=== PATIENT | female | born 1990 | race American Indian/Alaskan Native ===

== ENCOUNTER 2022-11-19 02:42 | Emergency (ER) | payer OTHER, SELFPAY ==
[2022-11-19] VITALS (10 sets, daily range): BP systolic 80–96; BP diastolic 60–74; PULSE 72–87; RESP 16; TEMP 36.4; O2SAT 40–100
--- NOTE | ~2022-11-19 | US_ITS ---
CORRECTED REPORT DESCRIPTION ADDED. US OB <= 14 weeks fetus. 11/19/22 sef This report was recreated on 11/19/2022. Original report was [facility] NEUROPSYCHOLOGIST. Pelvic ultrasound. Clinical History: First trimester , pelvic pain, evaluate for ectopic Technique: Realtime transabdominal and transvaginal scanning of the pelvis was performed. Color flow Doppler and Doppler spectral analysis were performed. Findings: The uterus is anteverted. Intrauterine gestational sac is present. Reid-rump length of 3 mm corresponds to an estimated gestational age is 6 weeks 0 days. heart rate is 93 bpm. The right ovary measures 2.1 x 2.0 x 2.0 cm. No significant right ovarian or adnexal mass is seen. The left ovary measures 2.6 x 2.2 x 1.5 cm. No significant left ovarian or adnexal mass is seen. There is no evidence of free fluid in the cul de sac. Impression: Live intrauterine gestation with estimated gestational age of 6 weeks 0 days. heart rate is 93 bpm. Relative bradycardia may be due to the very early gestational age. Reviewed, dictated and finalized at location . ICAL NEUROPSYCHOLOGIST MTDD Impression: Live intrauterine gestation with estimated gestational age of 6 weeks 0 days. F etal heart rate is 93 bpm. Relative bradycardia may be due to the very early ge stational age.
--- NOTE | 2022-11-19 02:57 | ED.GENADULT ---
HPI - General Adult General Chief complaint: Abdominal Pain Stated complaint: Back pain and abd pain, 6 weeks preg Time Seen by Provider: 11/19/22 02:51 History of Present Illness HPI narrative: Patient 32-year-old female who presents the emergency department with chief complaint of abdominal pain. Patient reports that she is approximately 6 weeks and has not had any evaluation during this patient reports this evening she started having pain in the epigastric region that radiates to her back. Patient reports the pain is sharp reports it hurts whenever she breathes the patient reports she has had nausea and vomiting and has vomited 2 episodes. Patient denies fever reports that she ate some fish earlier this evening patient denies diarrhea. The patient states the pain is mostly in the epigastric region. Related Data Allergies Allergy/AdvReac Type Severity Reaction Status Date / Time No Known Allergies Allergy Verified 11/19/22 02:51 Review of Systems Review of Systems: A 10 system review of systems was completed on the patient and is negative except for what is stated in the HPI. Nursing and ancillary documentation was reviewed. Exam Narrative: GENERAL: Well-appearing, well-nourished, and in no acute distress. HEAD: Normocephalic, atraumatic. EYES: PERRLA and EOMI. ENT: Nares clear, no rhinorrhea or epistaxis. Mucous membranes moist. NECK: Supple. CHEST: Clear to auscultation. No respiratory distress. HEART: Regular rate and rhythm. No murmur heard. Normal peripheral pulses. ABDOMEN: Soft, tenderness to palpation in the epigastric region, nondistended, normal active bowel sounds. EXTREMITIES: Normal range of motion. No edema. SKIN: Warm, dry, no rash. NEURO: No focal deficits. Alert and oriented x3. PSYCH: Normal mood and affect. Course Vital Signs Vital signs: Vital Signs Temperature 36.4 C 11/19/22 02:45 Pulse Rate 74 11/19/22 02:45 Respiratory Rate 16 11/19/22 02:45 Blood Pressure 94/60 L 11/19/22 02:45 Pulse Oximetry 100 11/19/22 02:45 Oxygen Delivery Room Air 11/19/22 02:45 Temperature 36.4 C 11/19/22 02:45 Pulse Rate 73 11/19/22 06:43 Respiratory Rate 16 11/19/22 06:43 Blood Pressure 95/60 L 11/19/22 06:43 Pulse Oximetry 100 11/19/22 06:43 Oxygen Delivery Room Air 11/19/22 02:45 Medical Decision Making MDM Narrative Medical decision making narrative: Patient's laboratory studies were evaluated patient had a white count of 14,000 liver enzymes did not show any elements of the bilirubin patient has a normal lipase. Beta hCG was 19,035 urinalysis showed no evidence of UTI Due to the patient's pain a ultrasound was ordered of the abdomen which showed no evidence of ectopic showed a 6-week intrauterine with a somewhat slow cardiac heart rate in the 90s. Patient was given additional pain control and will be discharged home to follow-up with her primary care provider Differential Diagnosis Differential Diagnosis: Ectopic, reflux, biliary colic, pancreatitis Vital Signs Vital Signs: Vital Signs Temperature 36.4 C 11/19/22 02:45 Pulse Rate 74 11/19/22 02:45 Respiratory Rate 16 11/19/22 02:45 Blood Pressure 94/60 L 11/19/22 02:45 Pulse Oximetry 100 11/19/22 02:45 Oxygen Delivery Room Air 11/19/22 02:45 Temperature 36.4 C 11/19/22 02:45 Pulse Rate 73 11/19/22 06:43 Respiratory Rate 16 11/19/22 06:43 Blood Pressure 95/60 L 11/19/22 06:43 Pulse Oximetry 100 11/19/22 06:43 Oxygen Delivery Room Air 11/19/22 02:45 Lab Data 11/19/22 03:24 11/19/22 03:24 Labs: Lab Results 11/19/22 11/19/22 11/19/22 Range/Units 03:24 03:24 03:24 WBC 14.2 H (4.5-10.0) K/mm3 RBC 4.98 (4.2-5.4) M/mm3 Hgb 11.7 L (12.0-15.0) g/dL Hct 36.0 L (37.0-47.0) % MCV 72.3 L (80-100) fl MCH 23.5 L (26-34) pg MCHC 32.5 (32-36) g/dl RDW
[2022-11-19] MEDS: SODIUM CHLORIDE 0.9% IV 1,000 ML 999 ML IV CONT ×2 (03:16→08:45)
[2022-11-19] MEDS: MORPHINE SULFATE (*CRX) 4 MG/ML INJ IV PUSH ×2 (03:16→07:32)
[2022-11-19] MEDS: METOCLOPRAMIDE HCL INJ 10 MG/2 ML VIAL IV PUSH (03:16)
[2022-11-19 03:33] LABS: Appearance Urine Clear (Clear); Basophils Percent Auto 0.2 % (0.2-1.2); Bilirubin Urine Negative (Negative); Blood Urine Negative (Negative); Color Urine Yellow (Yellow); Eosinophils Percent Auto 0.2 % (0-4.4); Glucose Urine UA Negative (Negative); Hemoglobin 11.7 g/dL (12.0-15.0); Immature Granulocyte Absolute 0.06 K/mm3 (0.00-0.031); Immature Granulocyte Percent A 0.4 % (0-0.5); Ketones Urine 1+ mg/dL (Negative); Leukocyte Esterase Ur Negative LEU/UL (Negative); Lymphocytes Absolute Auto 2.01 K/mm3 (0.9-3.2); Lymphocytes Percent Auto 14.2 % (18.3-44.2); Mean Corpuscular HGB Conc 32.5 g/dl (32-36); Mean Corpuscular Hemoglobin 23.5 pg (26-34); Mean Corpuscular Volume 72.3 fl (80-100); Mean Platelet Volume 9.9 fl (7.4-10.4); Monocytes Absolute Auto 0.8 K/mm3 (0.1-0.6); Monocytes Percent Auto 5.6 % (2.6-8.5); Neutrophils Absolute Auto 11.2 K/mm3 (1.3-6.7); Neutrophils Percent Auto 79.4 % (45.5-73.1); Nitrate Urine Negative (Negative); Platelet Count Result 350 k/mm3 (150-375); Protein Urine Negative (Negative); Red Blood Count 4.98 M/mm3 (4.2-5.4); Red Cell Distribution Width 14.6 % (11.5-14.5); Urobilinogen Urine 0.2 mg/dL (<2.0); White Blood Count 14.2 K/mm3 (4.5-10.0); pH Urine 6.5 (5.0-9.0)
[2022-11-19 03:43] LABS: Bacteria Urine Trace /hpf; Mucus Urine Rare /lpf; RBC Urine 0-2 /hpf (0-2); Squamous Epithelial Cell Urine Few /hpf (Few); WBC Urine 0-3 /hpf
[2022-11-19 03:45] LABS: Alanine Aminotransferase 42 U/L (6-35); Albumin Level 4.1 g/dL (3.5-5.1); Alkaline Phosphatase 70 U/L (38-126); Anion Gap 8 mmol/L (8-16); Aspartate Amino Transferase 30 U/L (14-36); Bilirubin,Total 0.4 mg/dL (0.2-1.3); Blood Urea Nitrogen 12 mg/dL (7-17); Calcium 8.9 mg/dL (8.4-10.2); Carbon Dioxide 25 mmol/L (22-30); Chloride 101 mmol/L (98-107); Estimated Glomerular Filt Rate > 60; Glucose 136 mg/dL (65-110); Lipase 150 U/L (23-300); Sodium 134 mmol/L (137-145)
[2022-11-19 04:07] LABS: Add Urine Microscopic? YES
--- NOTE | 2022-11-19 05:42 | PC.NURSE ---
Pt to US via wheelchair
[2022-11-19] MEDS: POTASSIUM CHLORIDE 20 MEQ TABLET 40 MEQ PO (09:36)
[2022-11-19] MEDS: ONDANSETRON INJ 4 MG/2 ML VIAL IV PUSH (10:12)
== END 2022-11-19 12:19 | disposition home or self-care (01) ==
PROVIDERS: Emergency Provider Emergency Medicine
DX: O26.899 Other specified pregnancy related conditions, unspecified trimester (principal); R10.9 Unspecified abdominal pain; Z3A.01 Less than 8 weeks gestation of pregnancy
CPT/HCPCS: 36415; 76801; 76815; 80053; 81001; 81025; 83690; 84702; 85025; 96361; 96374; 96375; 96376; 99284; A9270; J2270; J2405; J2765; J7030

== ENCOUNTER 2022-11-30 20:31 | Emergency (ER) | payer OTHER, SELFPAY ==
[2022-11-30 20:33] VITALS: BP 101/62; PULSE 95; RESP 16; TEMP 36.6; O2SAT 100
[2022-11-30 21:45] LABS: Basophils Percent Auto 0.3 % (0.2-1.2); Eosinophils Absolute Auto 0.1 K/mm3 (0-0.3); Eosinophils Percent Auto 0.6 % (0-4.4); Hematocrit 36.4 % (37.0-47.0); Hemoglobin 11.8 g/dL (12.0-15.0); Immature Granulocyte Absolute 0.05 K/mm3 (0.00-0.031); Immature Granulocyte Percent A 0.4 % (0-0.5); Lymphocytes Absolute Auto 3.05 K/mm3 (0.9-3.2); Lymphocytes Percent Auto 23.6 % (18.3-44.2); Mean Corpuscular HGB Conc 32.4 g/dl (32-36); Mean Corpuscular Volume 74.1 fl (80-100); Mean Platelet Volume 9.5 fl (7.4-10.4); Monocytes Percent Auto 7.5 % (2.6-8.5); Neutrophils Absolute Auto 8.8 K/mm3 (1.3-6.7); Neutrophils Percent Auto 67.6 % (45.5-73.1); Platelet Count Result 373 k/mm3 (150-375); Red Blood Count 4.91 M/mm3 (4.2-5.4)
[2022-11-30 21:59] LABS: INR 1.1; Prothrombin Time 13.3 Seconds (11.1-14.7)
[2022-11-30 22:00] LABS: Microcytosis 1+ (NORMAL); Partial Thromboplastin Time 32.5 SECONDS (22.3-36.8); Platelet Estimate Adequate (Adequate); Schistocytes None Seen (NORMAL)
[2022-11-30 22:05] LABS: Alanine Aminotransferase 44 U/L (6-35); Albumin Level 4.2 g/dL (3.5-5.1); Alkaline Phosphatase 68 U/L (38-126); Anion Gap 10 mmol/L (8-16); Aspartate Amino Transferase 31 U/L (14-36); Bilirubin,Total 0.4 mg/dL (0.2-1.3); Blood Urea Nitrogen 11 mg/dL (7-17); Carbon Dioxide 23 mmol/L (22-30); Chloride 104 mmol/L (98-107); Estimated CRCL calculation 90 ml/min; Estimated Glomerular Filt Rate > 60; Glucose 98 mg/dL (65-110); Potassium 4.1 mmol/L (3.4-5.0); Sodium 137 mmol/L (137-145)
--- NOTE | 2022-11-30 23:06 | PC.NURSE ---
Pt reports one episode of vaginal bleeding this evening. She has not had anymore bleeding since. She is 7 weeks . Denies abdominal cramping.
[2022-11-30 23:57] LABS: Appearance Urine Clear (Clear); Bilirubin Urine Negative (Negative); Blood Urine 2+ (Negative); Color Urine Yellow (Yellow); Glucose Urine UA Negative (Negative); Ketones Urine Trace mg/dL (Negative); Leukocyte Esterase Ur Negative LEU/UL (Negative); Nitrate Urine Negative (Negative); Protein Urine Negative (Negative); Specific Grav Ur >= 1.030 (1.001-1.035); Urobilinogen Urine 0.2 mg/dL (<2.0); pH Urine 5.5 (5.0-9.0)
[2022-12-01 00:04] LABS: Bacteria Urine 1+ /hpf; Mucus Urine Rare /lpf; Squamous Epithelial Cell Urine Rare /hpf (Few); WBC Urine 0-3 /hpf
[2022-12-01 00:08] LABS: Add Urine Microscopic? YES
--- NOTE | 2022-12-01 00:15 | ED.PREGNANCY ---
HPI - General Chief complaint: Vaginal Bleeding Stated complaint: 7 weeks -vaginal bleeding Time Seen by Provider: 11/30/22 22:44 Source: patient and old records reviewed Mode of arrival: ambulatory Limitations: no limitations History of Present Illness HPI Narrative: Patient is a 32-year-old female who presents the ED with report of vaginal bleeding. Patient is and currently approximately 7 weeks gestation, confirmed IUP, OBGYN Dr. Barker. Patient saw her HAND ASSEMBLER FOR P[employer] OVER yesterday at which point everything was normal. Today, she experienced 1 episode of vaginal spotting with wiping. She became concerned and decided to come into the ED. She denies any abdominal pain at this time. Denies nausea, vomiting, urinary symptoms, fevers. Related Data Allergies Allergy/AdvReac Type Severity Reaction Status Date / Time No Known Allergies Allergy Verified 11/19/22 02:51 Review of Systems Review of Systems: CONSTITUTIONAL: Denies fever, chills, or sweats. CARDIOVASCULAR: Denies chest pain. RESPIRATORY: Denies dyspnea. GASTROINTESTINAL: Denies abdominal pain, nausea, vomiting, or diarrhea. GENITOURINARY: See HPI. All systems reviewed & are unremarkable except as noted in HPI and below PMFSH Past Medical History Medical History (Updated 12/01/22 @ 02:10 by Shy Hernandez PA-C) No pertinent past medical history Surgical History Surgical History (Updated 12/01/22 @ 00:16 by Shy Hernandez PA-C) No pertinent past surgical history Social History Social History (Updated 12/01/22 @ 00:16 by Shy Hernandez PA-C) Smoking status: Never smoker Exam Narrative: GENERAL: Well appearing, well-nourished, non-toxic, in no acute distress. HEAD: Normocephalic, atraumatic. NECK: Supple. No adenopathy, no masses. RESPIRATORY: Airway patent, respirations nonlabored. Clear to auscultation bilaterally, no rales, rhonchi, wheezing. CARDIOVASCULAR: Regular rate and rhythm without murmurs, rubs, or gallops. Peripheral pulses 2+ and equal bilaterally. ABDOMINAL: Soft, no tenderness throughout abdomen, nondistended, no hepatosplenomegaly. Normoactive BS. PELVIC: Normal external genitalia. Mild amount of dark red/brown vaginal discharge/spotting. No active bright red bleeding. Cervix appears closed. No significant CMT. MUSCULOSKELETAL: Moves all extremities. Strength/ROM intact without gross deformities. SKIN: Warm, dry, normal color. No rashes. NEURO: A&O X3. Speech clear. Cranial nerves II-XII grossly intact. Steady gait. No ataxic movements. PSYCHIATRIC: Appropriate mood and affect. Normal interaction. Course Vital Signs Vital signs: Vital Signs Temperature 97.9 F 11/30/22 20:33 Pulse Rate 95 11/30/22 20:33 Respiratory Rate 16 11/30/22 20:33 Blood Pressure 101/62 11/30/22 20:33 Pulse Oximetry 100 11/30/22 20:33 Oxygen Delivery Room Air 11/30/22 20:33 Temperature 97.9 F 11/30/22 20:33 Pulse Rate 88 12/01/22 02:34 Respiratory Rate 16 12/01/22 02:34 Blood Pressure 112/72 12/01/22 02:34 Pulse Oximetry 98 12/01/22 02:34 Oxygen Delivery Room Air 11/30/22 20:33 MDM - OB/Uterine Contractions MDM Narrative Medical decision making narrative: Patient with vaginal spotting, 7 weeks gestation, previously confirmed IUP. Exam and work-up reassuring here. Vitals stable. Beta quant greater than 90,000, increased appropriately from previous records. Blood type B+, patient does not require RhoGAM. UA without significant signs of infection. Cervix normal and appeared closed on pelvic exam. Stable hemoglobin. Discussed findings with patient and family, threatened miscarriage. Discussed case with Dr. Crook, HAND ASSEMBLER [employer] on-call for Dr. Barker, advised to have patient call the office to make follow-up appointment for further evaluation and potentially repeat laboratory testing and ultrasound. Patient given strict return precautions. She agrees with plan. Discharged in sta
--- NOTE | 2022-12-01 01:58 | PC.NURSE ---
Pt asking how much longer until she can go home. Informed her that Shy still needs to speak to her OB. Once Shy consults her OB she can go home. Pt verbalized understanding.
[2022-12-01 02:34] VITALS: BP 112/72; PULSE 88; RESP 16; O2SAT 98
== END 2022-12-01 02:34 | disposition home or self-care (01) ==
PROVIDERS: Emergency Medicine; Emergency Provider Physician Assistant
DX: O20.0 Threatened abortion (principal); Z3A.01 Less than 8 weeks gestation of pregnancy
CPT/HCPCS: 36415; 80053; 81001; 84702; 85025; 85610; 85730; 86850; 86900; 86901; 99283

== ENCOUNTER 2023-06-23 10:02 | Observation (INO) | payer OTHER, SELFPAY ==
[2023-06-23 10:18] VITALS: BP 101/66; PULSE 93
[2023-06-23] MEDS: LOPERAMIDE HCL 2 MG CAPSULE PO ×3 (10:37→13:29)
[2023-06-23 10:39] VITALS: BP 99/63; PULSE 82
[2023-06-23 10:41] VITALS: BMI 28.6
--- NOTE | 2023-06-23 10:41 | LDADM ---
This patient, Kim Gaytan, was admitted to OB Post 117 on 06/23/23 at 10:02. Plans for labor, pain management and were discussed with patient. Patient/family oriented to hospital policies and general routines including ID bracelet, bed and alarms, visiting hours, pain management, procedures, bathroom and other care routines, personal items, smoking policy, room service/diet and guest tray routines, infant security routines, and visiting hours. Patient/Family are encouraged to report perceived risks to care and to ask questions if they do not understand what they are told or what they should do. See OBIX for further documentation.
--- NOTE | 2023-06-23 10:46 | PC.NURSE ---
Patient admitted for observation with complaints of diarrhea all night and this morning. Patient denies feeling contractions, nausea, or vomiting. Patient has GI cramping with the diarrhea. Notified MD of arrival. Verbal orders given for Imodium and discharge if diarrhea improves after medication and tracing is reassuring.
[2023-06-23 10:59] VITALS: BP 108/65; PULSE 77
[2023-06-23 11:00] VITALS: BP 106/66; PULSE 79
[2023-06-23] MEDS: LACTATED RINGERS 1,000 ML 999 ML IV CONT (12:49)
--- NOTE | 2023-06-23 12:57 | PC.NURSE ---
tracing documented in OBIX.
--- NOTE | 2023-06-23 12:57 | PC.NURSE ---
Spoke with Dr. Crook on phone at [phone]. Notified MD that patient is still having recurrent diarrhea after 2 doses of Imodium. Verbal orders received for 1L LR bolus and discharge after if patient status has improved. Instructions for patient to picking machine operator OTC Imodium as well.
--- NOTE | 2023-06-23 14:03 | PC.NURSE ---
Patient states she feels more comfortable after fluid bolus. Patient requests discharge. MD agrees with this. Discharge orders placed.
--- NOTE | 2023-06-30 21:37 | PM.OBTRLD ---
OB - Triage/Final Diagnosis Visit Information Comments/Additional reasons for admission: I have assessed the risk for this patient, Kim Gaytan, and determined that she would benefit from observation care. Final Diagnosis (1) Diarrhea: Code(s): R19.7 - Diarrhea, unspecified Status: Acute
== END 2023-06-23 14:25 | disposition home or self-care (01) ==
PROVIDERS: Admitting Provider Obstetrics & Gynecology; Visit Provider Obstetrics & Gynecology
DX: O26.893 Other specified pregnancy related conditions, third trimester (principal); R19.7 Diarrhea, unspecified; Z3A.36 36 weeks gestation of pregnancy
CPT/HCPCS: A9270; G0378; G0379; J7120

== ENCOUNTER 2023-07-06 07:55 | Inpatient (IN) | payer OTHER, SELFPAY ==
[2023-07-06] VITALS (68 sets, daily range): BP systolic 68–121; BP diastolic 53–89; PULSE 55–129; RESP 16; TEMP 36.6–36.8; O2SAT 93–100; BMI 29.2
[2023-07-06 09:24] LABS: Basophils Percent Auto 0.4 % (0.2-1.2); Eosinophils Absolute Auto 0.1 K/mm3 (0-0.3); Eosinophils Percent Auto 1.1 % (0-4.4); Hematocrit 36.9 % (37.0-47.0); Hemoglobin 12.1 g/dL (12.0-15.0); Immature Granulocyte Absolute 0.05 K/mm3 (0.00-0.031); Immature Granulocyte Percent A 0.6 % (0-0.5); Lymphocytes Absolute Auto 1.93 K/mm3 (0.9-3.2); Lymphocytes Percent Auto 23.1 % (18.3-44.2); Mean Corpuscular HGB Conc 32.8 g/dl (32-36); Mean Corpuscular Hemoglobin 25.1 pg (26-34); Mean Corpuscular Volume 76.6 fl (80-100); Mean Platelet Volume 11.1 fl (7.4-10.4); Monocytes Absolute Auto 0.7 K/mm3 (0.1-0.6); Monocytes Percent Auto 8.6 % (2.6-8.5); Neutrophils Absolute Auto 5.5 K/mm3 (1.3-6.7); Neutrophils Percent Auto 66.2 % (45.5-73.1); Platelet Count Result 232 k/mm3 (150-375); Red Blood Count 4.82 M/mm3 (4.2-5.4); Red Cell Distribution Width 13.9 % (11.5-14.5); White Blood Count 8.3 K/mm3 (4.5-10.0)
[2023-07-06 09:25] LABS: Glucose Point of Care 88 mg/dl (65-105)
[2023-07-06] MEDS: LACTATED RINGERS 1,000 ML 125 ML IV CONT ×2 (11:11→13:45)
[2023-07-06] MEDS: OXYTOCIN 30 UNITS/NS 500 ML 30 UNITS/500 ML BAG IV CONT (11:11)
[2023-07-06 12:06] LABS: Glucose Point of Care 130 mg/dl (65-105)
[2023-07-06 14:40] LABS: Glucose Point of Care 90 mg/dl (65-105)
--- NOTE | 2023-07-06 16:46 | PM.OBPRVD ---
OB - Delivery Note Procedure Delivery date: 07/06/23 Procedure: Events: Gestational Diabetes Induction method: None Delivery augmentation: Pitocin Delivery monitor: External FHT and Internal Uterine Route of delivery: Laceration Description: Perineal - 2nd Degree Delivery repair: vicryl Quantitative Blood Loss (ml): 190 Anesthesia type: Epidural Disposition: Floor Narrative: With adequate expulsive efforts by the mother, the baby's head was delivered OA. The baby's anterior shoulder was delivered under the pubic symphysis without difficulty. The posterior shoulder and the rest of the baby delivered without difficulty. The infant was placed on the mothers chest and suctioned and stimulated. The cord was clamped and cut after 30 seconds. Mother and baby both stable. Baby Date of : 07/06/23 Time of : 16:26 Weeks of gestation at delivery: 38 Infant gender: Female Weight (pounds): 6 Weight (ounces): 3 presentation: vertex Placenta delivery description: Spontaneous Cord Vessel Description: 3 Vessels, Nuchal Cord and Delayed Cord Clamping score one minute: 8 score five minutes: 9
[2023-07-06] MEDS: OXYTOCIN 30 UNITS/NS 500 ML 30 UNITS/500 ML BAG 125 UNITS IV CONT (17:00)
[2023-07-06] MEDS: WITCH HAZEL 40 PADS 1 PAD TOPICAL (20:10)
[2023-07-06] MEDS: BENZOCAINE 20% AER SPR (*SP) 56 GM CAN 1 SPRAY TOPICAL (20:10)
[2023-07-06] MEDS: LORATADINE 10 MG TABLET PO (20:10)
--- NOTE | 2023-07-06 20:35 | OBPPTRN ---
Patient transferred to post room #285 via wheelchair. Support person present. Oriented to unit, room, information board, rooming in, admission packet and security measures. Patient verbalizes understanding.
[2023-07-06] MEDS: ACETAMINOPHEN 325 MG TABLET 650 MG PO (21:47)
[2023-07-06] MEDS: LANOLIN (LANSINOH) 7.5 GM CREAM 1 APPLIC TOPICAL (21:48)
[2023-07-07 00:01] VITALS: BP 88/53; PULSE 70; RESP 16; TEMP 36.8; O2SAT 98
[2023-07-07] MEDS: IBUPROFEN 600 MG TABLET PO ×3 (00:16→15:28)
--- NOTE | 2023-07-07 00:24 | PC.NURSE ---
07/07/2023 at 0025 Mother has baby's 5 1/2 yrs old sleeping in her bed. Mother states they do not have any family or friends in the area that can take him and watch him. I asked if baby's father could take him home and stay with him, I also asked who took care of the son while she was in labor. Mother responded and states, He's (baby's father) is worried about me and wants to take care of me. I explained to her we do not have the accommodations available for the sibling to stay (and the child could fall out of bed, etc.), and that we will gladly help the [place] with anything she needs. Mother states she will take full responsibility for her if something happens to her son. I told her the son will not be able to spend tomorrow night. Patient states understanding.
[2023-07-07 03:54] VITALS: BP 96/63; PULSE 63; RESP 16; TEMP 36.4; O2SAT 100
[2023-07-07 04:47] LABS: Hematocrit 38.4 % (37.0-47.0); Hemoglobin 12.6 g/dL (12.0-15.0)
--- NOTE | 2023-07-07 05:20 | P.PNOB_ITS ---
OB - PN: Subj Subjective Date/time seen: 07/07/23 05:20 Patient comments: no complaints and pain well controlled baby status: doing well and nursing well Narrative: would like DC home tonight if baby able. OB - PN: Obj Data Labs 07/07/23 04:38 Labs: Laboratory Results - last 24 hr 07/06/23 07/06/23 07/06/23 09:04 09:18 11:57 WBC 8.3 RBC 4.82 Hgb 12.1 Hct 36.9 L MCV 76.6 L MCH 25.1 L MCHC 32.8 RDW 13.9 Plt Count 232 MPV 11.1 H Immature Gran % (Auto) 0.6 H Neut % (Auto) 66.2 Lymph % (Auto) 23.1 [place] % (Auto) 8.6 H Eos % (Auto) 1.1 Baso % (Auto) 0.4 Lymph # (Auto) 1.93 [place] # (Auto) 0.7 H Eos # (Auto) 0.1 Baso # (Auto) 0.0 Abs Immat Gran (auto) 0.05 H Absolute Neuts (auto) 5.5 Absolute Nucleated RBC 0.0 Nucleated RBC % 0.0 POC Capillary Glucose 88 130 H Blood Type B Positive Antibody Screen Negative 07/06/23 07/07/23 14:37 04:38 WBC RBC Hgb 12.6 Hct 38.4 MCV MCH MCHC RDW Plt Count MPV Immature Gran % (Auto) Neut % (Auto) Lymph % (Auto) [place] % (Auto) Eos % (Auto) Baso % (Auto) Lymph # (Auto) [place] # (Auto) Eos # (Auto) Baso # (Auto) Abs Immat Gran (auto) Absolute Neuts (auto) Absolute Nucleated RBC Nucleated RBC % POC Capillary Glucose 90 Blood Type Antibody Screen OB - PN A/P Plan day: 1 Plan: routine care and discharge home Time Spent With Patient Time: Total time spent is greater than 50% in coordination of care (as documented) at patient's floor/unit and/or counseling patient: Time with patient: less than 15 minutes Exam Narrative: NAD abdomen soft, nontender, fundus firm below the umbilicus Extremities nontender, 1+ edema
--- NOTE | 2023-07-07 05:23 | PM.OBDSVD ---
DS: Admitting Diagnosis Discharge Date 07/07/23 Admitting Diagnosis labor at term DS: Discharge Diagnosis Discharge Diagnosis (1) , delivered: Code(s): O80 - Encounter for full-term uncomplicated delivery Status: Acute OB - DS: Summary Hospital Course Hospital Course: Karolyn was admitted with SROM at term. She proceeded to have an uncomplicated vaginal delivery and course and was discharged home on PPD 1. OB Procedures : NST and Ultrasound OB Procedures Intrapartum: Spontaneous Vag Delivery OB Procedures: : None Peripartum Data Infant Delivery Method: Natural Vaginal complications: none Status at Discharge Functional status at discharge: independent ambulation Time Spent with Patient Time attestation: Total time spent providing and/or coordinating discharge services: Exam Narrative: NAD abdomen soft, appropriately tender Ext non tender, 1+ edema DS: Data Data Completed and Pending Labs on day of discharge: Labs from last 24 hours 07/07/23 07/06/23 07/06/23 04:38 14:37 11:57 WBC RBC Hgb 12.6 Hct 38.4 MCV MCH MCHC RDW Plt Count MPV Immature Gran % (Auto) Neut % (Auto) Lymph % (Auto) [place] % (Auto) Eos % (Auto) Baso % (Auto) Lymph # (Auto) [place] # (Auto) Eos # (Auto) Baso # (Auto) Abs Immat Gran (auto) Absolute Neuts (auto) Absolute Nucleated RBC Nucleated RBC % POC Capillary Glucose 90 130 H RPR Blood Type Antibody Screen 07/06/23 07/06/23 09:18 09:04 WBC 8.3 RBC 4.82 Hgb 12.1 Hct 36.9 L MCV 76.6 L MCH 25.1 L MCHC 32.8 RDW 13.9 Plt Count 232 MPV 11.1 H Immature Gran % (Auto) 0.6 H Neut % (Auto) 66.2 Lymph % (Auto) 23.1 [place] % (Auto) 8.6 H Eos % (Auto) 1.1 Baso % (Auto) 0.4 Lymph # (Auto) 1.93 [place] # (Auto) 0.7 H Eos # (Auto) 0.1 Baso # (Auto) 0.0 Abs Immat Gran (auto) 0.05 H Absolute Neuts (auto) 5.5 Absolute Nucleated RBC 0.0 Nucleated RBC % 0.0 POC Capillary Glucose 88 RPR Pending Blood Type B Positive Antibody Screen Negative Discharge Plan Discharge Attending physician on discharge: Katy Barker Discharging Clinician: Katy Barker Anticipated Discharge Date/Time: 07/07/23 17:00 Patient Disposition: Home, Self-Care Activity: pelvic rest Diet: regular Patient Instructions: Antibiotic Form Stand Alone Forms: General Discharge Information Follow-up/Referrals: Katy Barker MD [Physician] - 4 Weeks Discharge Medications: Continued famotidine 10 mg tablet 10 mg PO HS Qty: 14 0RF ferrous sulfate 325 mg (65 mg iron) Tablet 325 mg PO DAILY prenat.vits,shirlene,[id number] Tablet 1 tablet PO DAILY Discontinued Humulin N NPH U-100 Insulin 100 unit/mL Suspension 5 unit SUBCUT DAILY Date of admission: 07/06/23 07:55 Primary Care Provider: PHYSICIAN,SUPERVISOR POST WAVE Admitting Provider: Katy Barker Attending physician on admission: Katy Barker Condition: Stable
[2023-07-07 08:00] VITALS: BP 86/53; PULSE 55; RESP 18; TEMP 37; O2SAT 100
[2023-07-07 12:50] VITALS: BP 93/62; PULSE 78; RESP 18; TEMP 36.7; O2SAT 100
[2023-07-07] MEDS: TETANUS,DIPHTHERIA,AC PERTUSSIS ADULT (0.5 ML) BOOSTRIX IM (15:22)
[2023-07-08 15:30] LABS: Rapid Plasma Reagin Non-Reactive (NonReactive)
== END 2023-07-07 18:48 | disposition home or self-care (01) | DRG 807 ==
LOC: ANHLDR 08:21 → ANHOB2 20:43
PROVIDERS: Admitting Provider Obstetrics & Gynecology; Visit Provider Obstetrics & Gynecology
DX: O24.429 Gestational diabetes mellitus in childbirth, unspecified control (principal); Z37.0 Single live birth; Z3A.38 38 weeks gestation of pregnancy; O69.81X0 Labor and delivery complicated by cord around neck, without compression, not applicable or unspecified; O70.1 Second degree perineal laceration during delivery
CPT/HCPCS: 36415; 82948; 85014; 85018; 85025; 86592; 86850; 86900; 86901; 90715; A9270; J2590; J2795; J7120

== ENCOUNTER → 2023-09-11 14:09 | Outpatient (CLI) | payer OTHER, SELFPAY ==
--- NOTE | ~2023-09-11 | MM_ITS ---
EXAMINATION: MM screening lisa BI w quang HISTORY: Screening mammogram TECHNIQUE: Craniocaudal and mediolateral oblique 3-D tomosynthesis images were obtained and synthetic 2-D images were generated. CAD analysis was submitted and interpreted. COMPARISON: No prior mammogram is available for comparison at this institution. BREAST PARENCHYMAL COMPOSITION:The breasts are extremely dense, which lowers the sensitivity of mammo graphy. FINDINGS: No suspicious mass, calcification, or architectural distortion are identified in either petar ast to suggest malignancy. IMPRESSION: No mammographic evidence of malignancy. Recommend routine screening mammography in one year. BI-RADS Category 1: Negative Reviewed, dictated and finalized at location . CTURAL STEEL FITTER
== END ==
PROVIDERS: PCP Obstetrics & Gynecology; Visit Provider Obstetrics & Gynecology
DX: Z12.31 Encounter for screening mammogram for malignant neoplasm of breast (principal)
CPT/HCPCS: 77063; 77067

== ENCOUNTER → 2023-11-07 10:02 | Outpatient (CLI) | payer OTHER, SELFPAY ==
--- NOTE | ~2023-11-07 | US_ITS ---
EXAMINATION: US right upper quadrant DATE: 11/07/2023 10:19 INDICATION: Right upper quadrant tenderness. Nausea. TECHNIQUE: Multiple grayscale and Doppler ultrasound images of the abdomen were obtained. COMPARISON: None FINDINGS: The pancreatic head and body are normal in appearance. The pancreatic tail is not visualized. Liver has normal echogenicity and contour, with a smooth surface. No liver lesion identified. No intrahepat ic biliary duct dilation suspected. Portal venous flow was seen in the hepatopetal, normal direction and has normal Doppler waveform. Echogenic and shadowing gallstones within the otherwise normal-appea ring gallbladder with no gallbladder wall thickening. Sonographic [place] sign was reported as negativ e by the vegetable farmworker.The common bile duct measures 4 mm diameter which is normal. Visualized portion of the right kidney demonstrates normal contour and activity with no hydronephrosis. Visualized proxi mal inferior vena cava is normal. IMPRESSION: 1. Cholelithiasis. Reviewed, dictated and finalized at location A. RATURE TEACHER IMPRESSION: 1. Cholelithiasis.
== END ==
PROVIDERS: PCP Family Medicine; Visit Provider Family Medicine
DX: R10.811 Right upper quadrant abdominal tenderness (principal); K80.20 Calculus of gallbladder without cholecystitis without obstruction
CPT/HCPCS: 76705